=== PATIENT | male | born 1970 | race Caucasian/White ===

== ENCOUNTER → 2017-01-18 | Outpatient (CLI) | payer OTHER ==
[~2017-01-18] MED LIST: BUPRTAB PO; IBUP-1050 PO; LOSA50TA6 PO; PRLSR20 PO
--- NOTE | 2017-01-18 11:16 | DIAGNOSTIC IMAGING REPORT ---
LEFT SHOULDER INJECTION UNDER FLUOROSCOPIC GUIDANCE CLINICAL HISTORY: Left shoulder pain. Injection for MR arthrogram. PROCEDURE: The risks, benefits, and alternatives to the procedure were discussed with the patient. Written informed consent was obtained. The patient was placed supine on the fluoroscopy table, and a left shoulder injection was performed under fluoroscopic guidance. The area was prepped and draped in the usual sterile fashion. The skin and soft tissues anesthetized with local 1% lidocaine. The left shoulder joint was accessed utilizing a 22-gauge needle, and approximately 6 cc of a mixture of gadolinium contrast, Optiray 300, and saline was injected into the joint space under fluoroscopic guidance. There was normal distention of the capsule. The procedure was well tolerated and without immediate complication. The patient was then transferred to MRI for MR arthrography. FLUOROSCOPY TIME: 19 seconds. IMPRESSION: Unremarkable injection of the left under fluoroscopic guidance. Electronically signed by: Derrick Ramsey M.D. 01/18/2017 11:14 AM Dictated Date/Time: 01/18/2017 11:13 AM
--- NOTE | 2017-01-18 13:42 | DIAGNOSTIC IMAGING REPORT ---
MR ARTHROGRAM OF THE LEFT SHOULDER CLINICAL HISTORY: Left shoulder pain. COMPARISON STUDY: MR arthrogram of the left shoulder dated 07/24/2015. Progressive left shoulder dated 08/17/2016. TECHNIQUE: Following the intra-articular administration of gadolinium contrast, MR arthrogram of the left shoulder was performed utilizing various T1 and T2 weighted sequences in the axial, sagittal, coronal planes. FINDINGS: Rotator cuff: There is evidence of previous rotator cuff repair. There is tendinopathy of the supraspinous tendon. There is a full-thickness tear of supraspinatus, best seen on coronal image #9. This is located approximately 2 cm from the leading edge. The tear measures 3 mm in length. There is no associated musculotendinous retraction. There is tendinopathy with partial thickness tearing of the subscapularis tendon. Approximately 50% of fibers remain intact. The teres minor and infraspinatus tendons are intact. Contrast is present within the subacromial and subdeltoid bursae. Mild productive change is seen at the acromioclavicular joint. Biceps tendon: The long head of the biceps tendon is not identified, likely on a postoperative basis. Labrum: There is extensive labral fraying/tearing. This is greatest superiorly and anteriorly. Shoulder joint: The joint space is well distended with intra-articular contrast. The articular cartilage over the glenoid is well maintained. There is no MRI evidence of fracture. The humeral head is superiorly subluxed. Musculature and soft tissues: The musculature of the shoulder is normal in bulk and signal intensity. No atrophy is seen. IMPRESSION: 1. There is tendinopathy of the supraspinatus tendon with a full-thickness tear approximately 2 cm from the leading edge. No musculotendinous retraction is seen. 2. There is partial-thickness tearing of the subscapularis tendon. 3. The long head of the biceps tendon is not identified. This may be on a postoperative basis. 4. There is degenerative tearing/fraying of the labrum, greatest superiorly and anteriorly. 5. Additional findings as above. Electronically signed by: Derrick Ramsey M.D. 01/18/2017 1:41 PM Dictated Date/Time: 01/18/2017 1:18 PM
== END | disposition home or self-care (01) ==
LOC: C.MRIBC 09:40
PROVIDERS: ATTEND Orthopaedic Surgery
DX: M25.512 Pain in left shoulder (principal)